=== PATIENT | female | born 1950 | race Caucasian/White ===

== ENCOUNTER 2016-12-03 10:42 | Observation (INO) | payer BC, OTHER ==
--- NOTE | ~2016-12-03 | CN ---
Consultation Report [facility] [place]. [address] NAME: CHARLA JOHNSON : 48 STATUS : ADM Tresa PAT#: [id number] AGE: 66 ADM/REG DATE : 12/03/16 MR#: [id number] REPORT SERV DATE: 12/03/16 DICTATED BY: PAULINA GAITAN DATE: 12/03/16 REPORT STATUS : Draft TRANSCRIBED BY: MODL DATE: 12/03/16 CONSULTATION REPORT DATE OF CONSULTATION: Dear Dr. Colon and Dr. Isaac Billings: Thank you for requesting my opinion regarding evaluation and management of Ms Johnson's mediastinal lymphadenopathy and lung mass. Ms Johnson is a pleasant 66-year-old female with a significant past medical history of coronary artery disease, lupus, COPD, and small cell lung cancer who represents to [facility] for evaluation of mediastinal lymphadenopathy and an enlarging left upper lobe lung nodule concerning for tumor progression or a new primary. The patient has a history of small cell lung cancer, underwent SBRT for single peripheral lesion and underwent four cycles of carboplatin and etoposide. She also has a significant history of pancytopenia related to hepatitis C. She states that she has moderate shortness of breath at baseline, well localized to the chest, nonradiating with no significant alleviating or exacerbating factors. The patient presented for an outpatient bronchoscopy, but found to have profound hypokalemia with a potassium of 2.2. She will be rescheduled for tomorrow, but will require inpatient admission given her significant hypokalemia. She has no symptoms currently. REVIEW OF SYSTEMS: A detailed 14-point review of systems was completed. Pertinent positives and negatives are listed above. ALLERGIES: IBUPROFEN AND NEOSPORIN. HOME MEDICATIONS: Norvasc 10 mg p.o. daily. PAST MEDICAL HISTORY: 1. Anemia. 2. Arthritis. 3. Heart disease. 4. COPD. 5. Lupus. 6. History of pneumonia. 7. Small cell lung cancer, status post chemo and radiation therapy. PAST SURGICAL HISTORY: 1. Appendectomy. 2. Blood transfusion. 3. Breast implant. 4. Lung biopsy in the past. 5. Colonoscopy. Consultation Report [facility] [place]. [address] NAME: CHARLA JOHNSON : [birth year] STATUS : ADM Tresa PAT#: [id number] AGE: 66 ADM/REG DATE : 12/03/16 MR#: [id number] REPORT SERV DATE: 12/03/16 DICTATED BY: PAULINA GAITAN DATE: 12/03/16 REPORT STATUS : Draft TRANSCRIBED BY: MOOSE DATE: 12/03/16 SOCIAL HISTORY: The patient is . She no longer smokes, but smoked half pack per day for approximately 36 years. She denies any significant history of drinking. She reports no contact with hazardous materials and she indicates exposure to cigarettes. She denies any illicit drug abuse or alcohol abuse. FAMILY HISTORY: Cancer. PHYSICAL EXAMINATION: VITAL SIGNS: Reviewed and located in the paper chart. GENERAL: No acute distress, frail, chronically ill appearing. HEENT: Normocephalic and atraumatic. Pupils are equal, round, and reactive to accommodation. Posterior oropharynx is clear. NECK: No JVD. No LAD. Trachea midline. CARDIOVASCULAR: Regular rate and rhythm. S1 and S2 present. LUNGS: Coarse bilateral breath sounds. Otherwise, no wheezes, rhonchi, or dullness. ABDOMEN: Protuberant, nontender, and soft. No guarding or rebound. EXTREMITIES: No clubbing, cyanosis, or edema. SKIN: No new rashes, lesions, or ulcers. Sallow-appearing skin. LABORATORY DATA: Chemistries demonstrated potassium 2.2 and a creatinine 0.46. The patient has noted to have a white count of 1.8, hemoglobin of 10, and platelet count of 62. PET-CT scan on 11/25/2016 was personally reviewed by me and I agree with the following interpretation: 1. FDG-avid left pulmonary mass and central mediastinal lymphadenopathy compatible recurrent disease. 2. Identified 4 mm lung nodule in the anterior right lung, it is non-FDG avid. No evidence of recurrent disease identified below the diaphragm. ASSESSMENT AND PLAN: Ms Charla Johnson is an extremely pleasant 66-year-old female with a significant past medical history of chronic obstructive pulmonary disease; small cell lung cancer, status post stereotactic body radiation therapy and adjuvant chemotherapy; pancytopenia secondary to hepatitis C who presented for an outpatient elective lung biopsy. The patient's recent PET-CT scan is highly suggestive of tumor progression or recurrence versus a new primary. PET-CT scan on 11/22/2016 demonstrated FDG-avid pulmonary mass and central mediastinal lymphadenopathy. A 4-mm lung nodule is indeterminate located in the right anterior lung, and there was no evidence of recurrent disease below the diaphragm. At this point, we discussed in detail potential options for biopsy including CT-guided FNA, thoracoscopic biopsy or EBUS and navigation bronchoscopy. After careful discussion of the risks, benefits, and alternatives to each of these procedures, we agreed to proceed forward with EBUS and navigation bronchoscopy. Consultation Report [address] [place]. [address] NAME: CHARLA JOHNSON : 48 STATUS : ADM Tresa PAT#: [id number] AGE: 66 ADM/REG DATE : 12/03/16 MR#: [id number] REPORT SERV DATE: 12/03/16 DICTATED BY: PAULINA GAITAN DATE: 12/03/16 REPORT STATUS : Draft TRANSCRIBED BY: MOOSE DATE: 12/03/16 Given her hypokalemia, we will need to postpone the procedure and admit her overnight. I have spoken with Dr. Colon and she is aware of the plan. Thank you for allowing me to participate in Ms oJhnson's care. SUSANA/MOOSE Paulina Gaitan M.D. / [id number] CC: MD Antonella Steiner M.D.
--- NOTE | ~2016-12-03 | EGD ---
EGD REPORT [facility] [address] [address] NAME: ANTONIETA JOHNSON : 48 STATUS : ADM Tresa PAT#: [id number] AGE: 66 ADM/REG DATE : 12/03/16 MR#: [id number] REPORT SERV DATE: 12/04/16 DICTATED BY: KYLE GAITAN DATE: 12/04/16 REPORT STATUS : Draft [facility]ANSCRIBED BY: [facility] DATE: 12/04/16 Pulmonology Patient Name: Antonieta Johnson Procedure Date: 12/04/2016 11:59 AM Date of : 1950 Attending MD: JAZMINE GAITAN MD Procedure Date No Time: 12/04/2016 Procedure: EBUS Indications: Mediastinal adenopathy and HEMAL lung nodule Providers: JAZMINE GAITAN MD Referring MD: CITLALY Johnson MD Medicines: Lidocaine 2% 20 mL Complications: No immediate complications Procedure: Pre-Anesthesia Assessment: - A History and Physical has been performed. Patient meds and allergies have been reviewed. The risks and benefits of the procedure and the sedation options and risks were discussed with the patient. All questions were answered and informed consent was obtained. Patient identification and proposed procedure were verified prior to the procedure by the physician and the nurse in the procedure room. Mental Status Examination: alert and oriented. Airway Examination: normal oropharyngeal airway. Respiratory Examination: poor air movement. CV Examination: normal and RRR, no murmurs, no S3 or S4. ASA Grade Assessment: III - A patient with severe systemic disease. After reviewing the risks and benefits, the patient was deemed in satisfactory condition to undergo the procedure. The anesthesia plan was to use general anesthesia. Immediately prior to administration of medications, the patient was re-assessed for adequacy to receive sedatives. The heart rate, respiratory rate, oxygen saturations, blood pressure, adequacy of pulmonary ventilation, and response to care were monitored throughout the procedure. The physical status of the patient was re-assessed after the procedure. the BF [id number] was introduced through the and advanced to the. the Bronchoscope was introduced through the and advanced to the. Findings: The endotracheal tube is in good position. The visualized portion of the trachea is of normal caliber. The marvin is sharp. The tracheobronchial tree was examined to at least the first subsegmental level. Bronchial mucosa and anatomy are normal; there are no endobronchial lesions, and no secretions. EGD REPORT [address] [address] NAME: ANTONIETA JOHNSON : [birth year] STATUS : ADM Tresa PAT#: [id number] AGE: 66 ADM/REG DATE : 12/03/16 MR#: [id number] REPORT SERV DATE: 12/04/16 DICTATED BY: KYLE GAITAN DATE: 12/04/16 REPORT STATUS : Draft TRANSCRIBED BY: [employer] DATE: 12/04/16 EBUS TBNA of lymph node level 11R x 4 passes for cytology EBUS TBNA of lymph node level 7 x 6 passes for cytology EBUS TBNA of lymph node level 4L x 6 passes for cytology Bronchoalveolar lavage was performed in the left upper lobe of the lung and sent for routine cytology. 60 mL of fluid were instilled. 20 mL were returned. The return was cellular. Impression: Rapid On-Site Evaluation (MURIEL): Preliminary cytology is POSTIVE FOR SMALL CELL LUNG CANCER (final results are pending). Recommendation: - Await test results. - Follow up with referring physician. Attending Participation: I personally performed the entire procedure. JAZMINE GAITAN MD 12/04/2016 3:06 PM This report has been signed electronically. Number of Addenda: 0 Note Initiated On: 12/04/2016 11:59 AM [address]ison. [address] [place] [id number]
--- NOTE | ~2016-12-03 | DS ---
Discharge Summary [facility] [address] [place]. [address] NAME: ANTONIETA JOHNSON : 48 STATUS : DIS Tresa PAT#: [id number] AGE: 66 ADM/REG DATE : 12/03/16 MR#: [id number] REPORT SERV DATE: 12/05/16 DICTATED BY: LI CLOON DATE: 12/04/16 REPORT STATUS : Draft TRANSCRIBED BY: MODL DATE: 12/04/16 ADMISSION DATE: 12/03/2016 DISCHARGE DATE: 12/04/2016 CHIEF COMPLAINT ON ADMISSION: Hypokalemia. DISCHARGING DIAGNOSES: 1. Recurrent limited-stage small-cell lung cancer. 2. Chronic obstructive pulmonary disease with chronic respiratory failure. 3. Chronic pancytopenia likely due to hepatitis C. 4. Hepatitis C. 5. Hypomagnesemia. 6. Hypokalemia. HISTORY OF PRESENT ILLNESS: Please see full H and P for details regarding initial presentation. HOSPITAL COURSE: The patient was brought in for an elective EBUS for biopsy of lymph nodes given concern for possible recurrence of her small-cell lung cancer, which was initially limited stage. Upon arrival, she had blood work done, which showed a potassium of 2.2. She was admitted for repletion of her potassium. She had not been taking her outpatient repletion. She has been counseled on this. Her chronic thrombocytopenia did require platelet transfusion prior to her EBUS today. She had biopsies of lymph nodes per Dr. Obando and prelim is positive for small cell. Dr. Isaac Billings has been updated. She has follow up with Dr. Jose Enrique Liu for hepatitis C next week and Dr. Isaac Billings. In regard to her chronic thrombocytopenia, at discharge, her white blood cell count is 1.3, her hemoglobin is 9.8, and platelet is 49. However, she did receive platelet transfusion for that 49 prior to procedure. Her potassium is 3.6 at this time. She will be started on chronic repletion with 20 mEq p.o. b.i.d. and this can be followed outpatient with Dr. Billings. In regard to her COPD with chronic respiratory failure, she has not required any additional treatment for that. At this time, she has no acute exacerbation. DISCHARGE MEDICATIONS: Same as admission with the addition of magnesium oxide 80 mg p.o. daily for a week, potassium chloride 20 mEq p.o. b.i.d. Time spent on this discharge including coordination of care with Dr. Obando and Dr. Billings is greater than 30 minutes. DNK/MODL Li Colon MD / [id number] Discharge Summary [address] [address] NAME: ANTONIETA JOHNSON : 48 STATUS : DIS Tresa PAT#: [id number] AGE: 66 ADM/REG DATE : 12/03/16 MR#: [id number] REPORT SERV DATE: 12/05/16 DICTATED BY: LI COLON DATE: 12/04/16 REPORT STATUS : Draft TRANSCRIBED BY: MODL DATE: 12/04/16 CC: MD Antonella Steiner M.D.
--- NOTE | ~2016-12-03 | HP ---
History And Physical [place] [address] [facility]. [address] NAME: ANTONIETA JOHNSON : 48 STATUS : ADM Tresa PAT#: [id number] AGE: 66 ADM/REG DATE : 12/03/16 MR#: [id number] REPORT SERV DATE: 12/03/16 DICTATED BY: LI COLON DATE: 12/03/16 REPORT STATUS : Draft TRANSCRIBED BY: MODL DATE: 12/03/16 DATE OF ADMISSION: 12/03/2016 CHIEF COMPLAINT: The patient sent from endoscopy lab for her potassium of 2.2. HISTORY OF PRESENT ILLNESS: This is a 66-year-old female, who follows with Dr. Billings as an outpatient. She has a history of coronary artery disease, lupus, and COPD, uses chronic nocturnal oxygen. She was seen by Dr. Billings on 11/29/2016. She has notable history of small cell status post chemo and radiation. Dr. Billings sent her in for an elective EBUS with Dr. Obando for evaluation of some new worrisome mediastinal nodes. PET-CT scan revealed possible recurrence. She arrives today with no new complaints. She said she has her chronic sort of muscle pain and was noted by Anesthesia to have a potassium of 2.2. She says she had been prescribed a potassium supplement as an outpatient which she had not taken sometimes, she felt like she was getting better. PAST MEDICAL HISTORY: Includes lupus; arthritis; coronary artery disease; lung disease including chronic COPD, on nocturnal 2 L nasal cannula; history of pancytopenia; hepatitis C; lupus. History of limited stage small-cell lung cancer, status post chemo and radiation, follows with Dr. Billings. REVIEW OF SYSTEMS: Full review of system was obtained and is negative with the exception of above in the HPI. The patient did report about a week ago she felt she may have had a cold. HOME MEDICATIONS: Albuterol p.r.n., Norvasc 10 mg daily, QVAR 1 inhalation twice a day p.r.n., Claritin p.r.n., and previous prescription for potassium chloride that she was not taking. SOCIAL HISTORY: She is a previous smoker, currently not smoking. Denies alcohol history. FAMILY HISTORY: Her mother of some type of cancer in her 80s. PHYSICAL EXAMINATION: VITAL SIGNS: Temperature 98.4, pulse of 81, blood pressure 147/76, breathing 20 times a minute, saturating 97% on room air. GENERAL: This is a chronically ill-appearing female, in no acute distress. HEENT: Extraocular muscles are intact. Sclerae anicteric. Mucous membranes are mildly dry. LUNGS: Diminished with some faint expiratory wheeze. She has normal respiratory effort. CARDIAC: Regular rate and rhythm without any appreciable murmurs. ABDOMEN: Soft, nontender, and nondistended with no appreciable masses. CHEST: Has a right Port-A-Cath in place without any surrounding erythema or induration. EXTREMITIES: Lower extremities are warm and well perfused with no edema. PSYCHIATRIC: The patient is cooperative and appropriate. NEURO: Cranial nerves II through XII are grossly intact. Face is symmetric. Tongue is midline. History And Physical [address] [address] NAME: ANTONIETA JOHNSON : 48 STATUS : ADM Tresa PAT#: [id number] AGE: 66 ADM/REG DATE : 12/03/16 MR#: [id number] REPORT SERV DATE: 12/03/16 DICTATED BY: LI COLON DATE: 12/03/16 REPORT STATUS : Draft TRANSCRIBED BY: MOOSE DATE: 12/03/16 Labs have been reviewed. ASSESSMENT AND PLAN: This is a 66-year-old female coming in for elective EBUS, found to have hypokalemia with potassium of 2.2. 1. Hypokalemia. We will replete her potassium. Repeat her serum potassium level at 6 p.m. She will be placed on electrolyte protocol. We will also hydrate with some IV fluids. Hope that this will improve and she will be able to have her procedure tomorrow. 2. History of limited stage small cell lung cancer, status post chemo radiation with new concerning mediastinal nodes. Hope to proceed with her EBUS tomorrow per Dr. Obando. 3. Pancytopenia with history of hepatitis C and lupus. We will check blood work in the morning. Her platelets seem to be greater than 50,000 to proceed with EBUS. These appear to be in areas that are consistent with her previous blood work and not concerning for any acute process. 4. History of hypertension. Continue home medications with parameters. 5. Chronic obstructive pulmonary disease with history of chronic hypoxic respiratory failure requiring nocturnal oxygen. We will continue her 2 L nasal cannula at night. We will have DuoNebs ordered for her while she is here given some wheezing on exam. Suspect the patient will be able to be discharged home on previous regimen. 6. DVT prophylaxis. We will hold, given plans for EBUS tomorrow. 7. Code status is full code. 8. Expected length of stay. Hopefully, the patient will get her procedure tomorrow and will be discharged. DNK/MODL Li Colon MD / [id number] CC: MD Antonella Steiner M.D.
[~2016-12-03 10:42] MED LIST: AMB5 PO; AMIT10 PO; ASA5GR PO; ASAB PO; ATV.5 PO; AUG875 PO; CENTRUM TAB1 TAB PO; CLARIT10 PO; COMP10B PO; GOODY'S HEADAC1 EACH PO; MARI2.5 PO; MARI5 PO; NORV10 PO; PR12.5 PO; QVAR40 MC1 INH; QVAR80 MCG INH; REQUIP5 PO; RESTORIL30 MG PO; TRAZ50 PO; ULTRAM50 PO; VENTOLIN HFA INH; WELLSR150 PO; WELLXL300 PO; ZOFRAN8 PO
[2016-12-03 11:13] LABS: HEMATOCRIT 31.7 % (36.0-48.0); HEMOGLOBIN 10.7 g/dL (12.0-16.0); MEAN PLATELET VOLUME 11.2 fL (9.2-13.0); RED CELL COUNT 2.92 10/6/uL (4.0-5.6)
[2016-12-03 11:15] LABS: INTERNATIONAL NORMAL RATI 0.9 UNITS (-); MANUAL DIFF YES %; MEAN CORPUS HGB CONC 33.8 g/dL (32.0-36.0); MEAN CORPUSCULAR HEMOGLOB 36.6 pg (26.0-34.0); MEAN CORPUSCULAR VOLUME 108.6 fL (80-100); PLATELET COUNT 62 10/3/uL (150-400); PROTIME (NOT ORD) 12.4 SEC (12.0-14.5); RBC DISTRIBUTION WIDTH 15.1 % (12.0-16.0); WHITE BLOOD CELLS 1.8 10/3/uL (4.5-10.5)
[2016-12-03 11:20] LABS: BUN (BLOOD UREA NITROGEN) 10 MG/DL (6-23); CALCIUM, SERUM 8.6 MG/DL (8.5-10.4); CHLORIDE, SERUM 97 MMOL/L (96-112); CO2 (CARBON DIOXIDE) 37 MMOL/L (24-34); CREATININE 0.46 MG/DL (0.55-1.02); GFR AFRICAN AMERICAN 119 ML/MIN (>=60); GFR NON AFRICAN AMERICAN 103 ML/MIN (>=60); GLUCOSE, SERUM 103 MG/DL (60-99)
[2016-12-03 11:27] LABS: POTASSIUM, SERUM 2.2 MMOL/L (3.5-5.3); SODIUM, SERUM 142 MMOL/L (135-148)
[2016-12-03 11:45] LABS: EOSINOPHILS 2 %; EOSINOPHILS ABSOLUTE (CALC) 0.04 10/3/uL (0.0-0.53); LYMPHOCYTES 35 %; LYMPHOCYTES ABSOLUTE (CALC) 0.63 10/3/uL (0.67-4.30); MONOCYTES 11 %; NEUTROPHILS ABSOLUTE (CALC) 0.94 10/3/uL (2.02-8.40); PLATELET ESTIMATE DEC (ADEQUATE); SEGMENTED NEUTROPHIL (0) 52 %; TOTAL NUCLEATED CELLS 100
[2016-12-03 11:46] LABS: OVALOCYTES 1+ (3-10/OIF) (0-2/OIF)
[2016-12-04 06:17] LABS: HEMATOCRIT 28.9 % (36.0-48.0); HEMOGLOBIN 9.8 g/dL (12.0-16.0); MEAN CORPUS HGB CONC 33.9 g/dL (32.0-36.0); MEAN CORPUSCULAR HEMOGLOB 37.4 pg (26.0-34.0); MEAN CORPUSCULAR VOLUME 110.3 fL (80-100); MEAN PLATELET VOLUME 10.8 fL (9.2-13.0); RBC DISTRIBUTION WIDTH 15.3 % (12.0-16.0); RED CELL COUNT 2.62 10/6/uL (4.0-5.6); WHITE BLOOD CELLS 1.3 10/3/uL (4.5-10.5)
[2016-12-04 06:18] LABS: MANUAL DIFF YES %; PLATELET COUNT 49 10/3/uL (150-400)
[2016-12-04 06:24] LABS: CHLORIDE, SERUM 101 MMOL/L (96-112); CO2 (CARBON DIOXIDE) 33 MMOL/L (24-34); CREATININE 0.45 MG/DL (0.55-1.02); GFR AFRICAN AMERICAN 120 ML/MIN (>=60); GFR NON AFRICAN AMERICAN 104 ML/MIN (>=60); GLUCOSE, SERUM 83 MG/DL (60-99); SODIUM, SERUM 140 MMOL/L (135-148)
[2016-12-04 06:26] LABS: BUN (BLOOD UREA NITROGEN) 6 MG/DL (6-23)
[2016-12-04 06:49] LABS: BAND NEUTROPHILS 2 %; EOSINOPHILS 4 %; EOSINOPHILS ABSOLUTE (CALC) 0.05 10/3/uL (0.0-0.53); LYMPHOCYTES 46 %; MONOCYTES 7 %; MONOCYTES ABSOLUTE (CALC) 0.09 10/3/uL (0.21-1.20); NEUTROPHILS ABSOLUTE (CALC) 0.56 10/3/uL (2.02-8.40); PLATELET ESTIMATE DEC (ADEQUATE); SEGMENTED NEUTROPHIL (0) 41 %; TOTAL NUCLEATED CELLS 100
[2016-12-04] MEDS ORDERED: MAGOX4 PO (12:32)
[2016-12-04] MEDS ORDERED: KLOR-CON M2020 MEQ PO (12:38)
[2017-04-10] MEDS ORDERED: DRONABINOL (15:01)
[2017-04-10] MEDS ORDERED: [UNRECOGNIZED DRUG - OTHER] (15:01)
[2017-04-10] MEDS ORDERED: FENTANYL PATCH (15:01)
[2017-04-10] MEDS ORDERED: ONDANSETRON (15:01)
[2017-04-10] MEDS ORDERED: TRAMADOL (15:01)
[2017-04-10] MEDS ORDERED: OMEPRAZOLE (15:01)
[2017-04-10] MEDS ORDERED: PREDNISONE (15:02)
[2017-04-10] MEDS ORDERED: PROCHLORPERAZINE (15:02)
[2017-04-10] MEDS ORDERED: MORPHINE IR (15:02)
[2017-04-10] MEDS ORDERED: LIDO (15:02)
[2017-04-10] MEDS ORDERED: PRILOCAINE (15:02)
[2017-04-10] MEDS ORDERED: *UNABLE1 (15:03)
[2017-04-10] MEDS ORDERED: ULTRAM50 PO (19:10)
[2017-04-10] MEDS ORDERED: LOM PO (19:10)
[2017-04-10] MEDS ORDERED: DURA12 TOP (19:11)
[2017-04-10] MEDS ORDERED: MARI5 PO (19:11)
[2017-04-10] MEDS ORDERED: ZOFRAN8 PO (19:11)
[2017-04-10] MEDS ORDERED: PRILOSEC40 MG PO (19:12)
[2017-04-10] MEDS ORDERED: P5 PO (19:13)
[2017-04-10] MEDS ORDERED: PR25R PR (19:13)
[2017-04-22] MEDS ORDERED: LIBRAX PO (10:10)
[2017-04-22] MEDS ORDERED: FLUCON2 PO (10:11)
[2017-04-22] MEDS ORDERED: AMB5 PO (10:11)
== END 2016-12-04 18:05 | disposition home or self-care (01) ==
LOC: DMU 10:42 → 4EA 14:18
PROVIDERS: Internal Medicine
PROC: 07974ZX Drainage of Thorax Lymphatic, Percutaneous Endoscopic Approach, Diagnostic (ICD-10-PCS; principal; 2016-12-04 10:00)
PROC: BB4CZZZ Ultrasonography of Mediastinum (ICD-10-PCS; 2016-12-04 10:00)
PROC: 0B988ZX Drainage of Left Upper Lobe Bronchus, Via Natural or Artificial Opening Endoscopic, Diagnostic (ICD-10-PCS; 2016-12-04 10:00)
DX: C7B.8 Other secondary neuroendocrine tumors (principal); J60 Coalworker's pneumoconiosis; J44.9 Chronic obstructive pulmonary disease, unspecified; I25.10 Atherosclerotic heart disease of native coronary artery without angina pectoris; I10 Essential (primary) hypertension; I25.2 Old myocardial infarction; M32.9 Systemic lupus erythematosus, unspecified; Z85.118 Personal history of other malignant neoplasm of bronchus and lung; Z87.891 Personal history of nicotine dependence; Z95.5 Presence of coronary angioplasty implant and graft; Z88.1 Allergy status to other antibiotic agents; Z88.6 Allergy status to analgesic agent; Z88.8 Allergy status to other drugs, medicaments and biological substances; Z79.899 Other long term (current) drug therapy
CPT/HCPCS: 36415; 70553; 71010; 80048; 83735; 84132; 85025; 85610; 85730; 86850; 86900; 86901; 88112; 88172; 88173; 88305; 88342; 88360; 93005; 94640; 96374; 96375; 96376; A9270-GY; A9577; C1725; G0378; J2370; J2405; J2710; J3010; P9035